=== PATIENT | male | born 1960 | race Caucasian/White ===

== ENCOUNTER → 2017-01-23 | Outpatient (CLI) | payer BC ==
[~2017-01-23] MED LIST: CHOL20002 PO; CYCL-259 PO; DILT300C42 PO; GABA300C10 PO; HYDR-3138 PO; KETO15CR TP; LISI1TAB5 PO; MULT-516 PO; PERCOCET PO; PRAV40TA2 PO; SERT50TA5 PO
== END | disposition home or self-care (01) ==
LOC: CARD 12:41
PROVIDERS: ATTEND Nurse Practitioner
DX: R06.02 Shortness of breath (principal)
CPT/HCPCS: 94060; 94620; 94726; 94729